=== PATIENT | male | born 1935 | race Caucasian/White ===

== ENCOUNTER → 2016-08-02 | Outpatient (CLI) | payer MEDICARE ==
[~2016-08-02] MED LIST: LIDOCAINE 1% MDV 20ML VIAL As Ordered ONE
--- NOTE | 2016-08-02 12:26 | REP ---
FRONTAL VIEW OF THE CHEST STATUS POST LUNG BIOPSY: There is a large right upper lobe mass, which was biopsied with CT guidance. There is no evidence of a post procedural pneumothorax. Signed by Clifton Reilly DO 08/02/2016 12:40 P
--- NOTE | 2016-08-02 13:06 | REP ---
CT GUIDED RIGHT UPPER LOBE LUNG BIOPSY: The procedure was performed under the direct supervision of Dr. Crowley. The patient has a history of a 5.2 x 3.6 cm cavitary mass in the right upper lobe see on a previous CAT scan from [facility] performed on 06/21/2016. The risks and benefits of the procedure were explained to the patient and informed consent was obtained. The right upper lobe lung mass was localized utilizing CT guidance. The skin was prepped and draped in a sterile fashion. 1% lidocaine was used as a local anesthetic. Using CT guidance a 19/20 gauge co-axial needle biopsy system was inserted and advanced into the mass. Three core biopsy samples were obtained and sent to the lab. The patient tolerated the procedure well and there were no immediate complications. After the appropriate amount of monitored convalescence the patient was discharged from the department. Reviewed by SHAKIR Templeton 08/03/2016 04:14 PEdited and Signed by Jose Manuel Crowley MD 08/03/2016 04:20 P
== END | disposition home or self-care (01) ==
LOC: M RADPRO 08:17
PROVIDERS: ATTEND Student in an Organized Health Care Education/Training Program
DX: C34.11 Malignant neoplasm of upper lobe, right bronchus or lung (principal); Z88.2 Allergy status to sulfonamides; Z79.899 Other long term (current) drug therapy